=== PATIENT | female | born 2000 ===

== ENCOUNTER 2024-08-29 08:00 | Outpatient (CLI) | payer OTHER ==
[2024-10-16] MEDS ORDERED: CEFOXITIN SODIUM 2,000 MG VIAL IV ONE (17:36)
== END 2024-08-29 08:01 | disposition home or self-care (01) ==
LOC: LAB 08:00 → SURH 09-08 12:15 → EDSTATUS 09-08 12:15 → CIR.AMB 09-08 12:15 → EDSTATUS 10-16 12:15 → CIR.AMB 10-16 12:15
PROVIDERS: ATTEND Orthopaedic Surgery Sports Medicine
DX: M22.42 Chondromalacia patellae, left knee (principal)